=== PATIENT | female | born 1990 | race American Indian/Alaskan Native ===

== ENCOUNTER 2019-08-23 23:05 | Emergency (ER) | payer MEDICAID ==
[2019-08-23 23:39] VITALS: BP 110/49
[2019-08-24 01:19] LABS: Basophils % (Auto) 0.8 % (0.0-1.8); Eosinophils # (Auto) 0.2 K/mm3 (0.0-0.4); Eosinophils % (Auto) 3.1 % (0.0-4.3); Hematocrit 36.3 % (30.3-42.9); Hemoglobin 12.2 gm/dl (10.1-14.3); Lymphocytes % (Auto) 38.4 % (13.4-35.0); Mean Corpuscular HGB Conc 34 % (30-34); Mean Corpuscular Volume 91 fl (79-97); Monocytes # (Auto) 0.4 K/mm3 (0.0-0.8); Monocytes % (Auto) 7.6 % (0.0-7.3); Platelet Count 294 K/mm3 (140-440); Red Cell Distribution Width 14.7 % (13.2-15.2)
--- NOTE | 2019-08-24 01:28 | Ultrasound Report ---
ULTRASOUND OBSTETRIC INDICATION: Vaginal bleeding. Clinical gestational age of 12 weeks, 4 days. TECHNIQUE: Transabdominal. COMPARISON: None available. FINDINGS: GESTATIONAL SAC: Well-defined oval shape and intrauterine in location. YOLK SAC: No significant abnormality. EMBRYO/FETUS: No significant abnormality. - [place]-Rump Length = 4.7 cm = 11 weeks, 4 day(s). - Heart Rate = 163 beats per minute. ADNEXA: No significant abnormality. FREE FLUID: None. ADDITIONAL FINDINGS: None. IMPRESSION: 1. Single, living intrauterine with estimated sonographic age of 11 weeks, 4 day(s). 2. No acute sonographic abnormality of the pelvis. Signer Name: Daniel Palmer MD Signed: 08/24/2019 1:24 AM Workstation Name: [id number]
[2019-08-24 01:31] LABS: Bilirubin,Urine NEG (Negative); Blood,Urine SM (Negative); Color,Urine Yellow (Yellow); Mucus,Urine FEW /HPF; Protein,Urine <15 mg/dL mg/dL (Negative); Urobilinogen,Urine < 2.0 mg/dL (<2.0)
[2019-08-24] MEDS: cephALEXin 500 MG CAP PO ONE (02:03)
[2019-08-24] MEDS: ACETAMINOPHEN 500 MG TAB PO ONE (02:03)
--- NOTE | 2019-08-24 02:42 | Emergency Department Report ---
<ANDREABRIAN - Last Filed: 08/24/19 20:21> ED Female HPI - General Chief complaint: Vaginal Bleeding Stated complaint: 11 WKS W/BLEEDING AND CLOTS Source: patient Mode of arrival: Ambulatory Limitations: No Limitations - History of Present Illness Initial comments: Patient is a A1 28-year-old -[place] female who is approximately 11 weeks gestation who presented to the ED with acute onset persistent pelvic pain and in persistent vaginal bleeding for the last 2 days after sexual intercourse. Patient states that the pain and the bleeding got worse in the last 6 hours when she noticed large blood clots. Patient denies fever, chills, nausea, vomiting, dizziness, syncope, chest pain or shortness of breath, dysuria, urinary frequency and urgency or vaginal discharge and low back pain. MD Complaint: vaginal bleeding, pelvic pain -: Sudden, days(s) (2) Location: suprapubic Radiation: non-radiating Severity: severe Severity scale (0 -10): 8 Quality: cramping, aching Consistency: constant Improves with: none Worsens with: intercourse Are you Now?: Yes (11 weeks gestation) Associated Symptoms: denies other symptoms, vaginal bleeding, abdominal pain (suprapaubic). denies: vaginal discharge, nausea/vomiting, fever/chills, headaches, loss of appetite, dysuria, hematuria, shortness of breath, syncope, weakness - Related Data Sexually active: Yes : 2 Para: 0 A: 1 Previous Rx's Medication Instructions Recorded Last Taken Type cephALEXin [Keflex] 500 mg PO Q6HR #40 capsule 08/24/19 Unknown Rx Allergies Allergy/AdvReac Type Severity Reaction Status Date / Time No Known Allergies Allergy Unverified 08/24/19 00:26 ED Review of Systems Constitutional: denies: chills, fever Eyes: denies: eye pain, eye discharge, vision change ENT: denies: ear pain, throat pain Respiratory: denies: cough, shortness of breath, wheezing Cardiovascular: denies: chest pain, palpitations Endocrine: no symptoms reported Gastrointestinal: abdominal pain (suprapubic). denies: nausea, vomiting, diarrhea Genitourinary: abnormal menses (vaginal bleeding). denies: urgency, dysuria, discharge Musculoskeletal: denies: back pain, joint swelling, arthralgia Skin: denies: rash, lesions Neurological: denies: headache, weakness, paresthesias Psychiatric: denies: anxiety, depression Hematological/Lymphatic: denies: easy bleeding, easy bruising ED Past Medical Hx - Past Medical History Previous Medical History?: No - Surgical History Past Surgical History?: No - Social History Smoking Status: Never Smoker Substance Use Type: None - Medications Home Medications: Home Medications Medication Instructions Recorded Confirmed Last Taken Type cephALEXin [Keflex] 500 mg PO Q6HR #40 capsule 08/24/19 Unknown Rx ED Physical Exam - General Limitations: No Limitations General appearance: alert, in no apparent distress - Head Head exam: Present: atraumatic, normocephalic, normal inspection - Eye Eye exam: Present: normal appearance, PERRL, EOMI Pupils: Present: normal accommodation - ENT ENT exam: Present: normal exam, normal orophraynx, mucous membranes moist, TM's normal bilaterally, normal external ear exam - Neck Neck exam: Present: normal inspection, full ROM - Respiratory Respiratory exam: Present: normal lung sounds bilaterally. Absent: respiratory distress, wheezes, rales, stridor, chest wall tenderness, accessory muscle use, decreased breath sounds, prolonged expiratory - Cardiovascular Cardiovascular Exam: Present: regular rate, normal rhythm, normal heart sounds. Absent: systolic murmur, diastolic murmur, rubs, gallop - GI/Abdominal GI/Abdominal exam: Present: soft, tenderness (suprapubic ), normal bowel sounds. Absent: guarding, rebound - Bi-manual exam: Present: other (patient declined pelvic exam) - Extremities Exam Extremities exam: Present: normal inspection, full ROM, normal capillary refill - Back Exam Back exam: Present: normal inspection, full ROM. Absent: tenderness, CVA tenderness (R), CVA tenderness (L), muscle spasm, vertebral tenderness - Neurological Exam Neurological exam: Present: alert, oriented X3, CN II-XII intact, normal gait, reflexes normal - Psychiatric Psychiatric exam: Present: normal affect, normal mood - Skin Skin exam: Present: warm, dry, intact, normal color. Absent: rash ED Medical Decision Making - Lab Data Result diagrams: 08/24/19 00:44 - Radiology Data Radiology results: report reviewed, image reviewed Findings [facility] [address] [place] [address] Ultrasound Report Signed Patient: MICHAEL SHAH MR#: [id number] : 1990 Acct:[id number] Age/Sex: 28 / F ADM Date: 08/23/19 Loc: ED Attending Dr: Ordering Physician: CELINA FRANCO MD Date of Service: 08/24/19 Procedure(s): US OB <= 14 weeks fetus Accession Number(s): [id number] cc: CELINA FRANCO MD ULTRASOUND OBSTETRIC INDICATION: Vaginal bleeding. Clinical gestational age of 12 weeks, 4 days. TECHNIQUE: Transabdominal. COMPARISON: None available. FINDINGS: GESTATIONAL SAC: Well-defined oval shape and intrauterine in location. YOLK SAC: No significant abnormality. EMBRYO/FETUS: No significant abnormality. - [place]-Rump Length = 4.7 cm = 11 weeks, 4 day(s). - Heart Rate = 163 beats per minute. ADNEXA: No significant abnormality. FREE FLUID: None. ADDITIONAL FINDINGS: None. IMPRESSION: 1. Single, living intrauterine with estimated sonographic age of 11 weeks, 4 day(s). 2. No acute sonographic abnormality of the pelvis. Signer Name: Daniel Palmer MD Signed: 08/24/2019 1:24 AM Workstation Name: [id number] Transcribed By: MN Dictated By: Daniel Palmer MD Electronically Authenticated By: Daniel Palmer MD Signed Date/Time: 08/24/19123 DD/ 2 TD/TT: - Medical Decision Making This is a A1 28-year-old -[place] female who is approximately 11 weeks gestation who presented to the ED with acute onset persistent pelvic pain and in persistent vaginal bleeding for the last 2 days after sexual intercourse. In the ED, patient is alert and oriented x3 and is not in any distress. Pat ient was treated for pain in the ED and lab test results [place] [id number] with urinalysis showing acute urinary tract infection. The rest of the lab test results were nonactionable. Transvaginal ultrasound showed a single, living intrauterine with estimated sonographic age of 11 weeks, 4 day(s), and heart rate of 163 bpm. There are no other acute sonographic abnormality of the pelvis. On reevaluation, patient's pain is well controlled with medications. Patient was discharged home oral antibiotic prescriptions for UTI and advised to maintain a complete pelvic rest, devoid of any strenuous physical activity or sexual activity until she follows up with up with [facility] physician. Patient was advised to follow-up with our [facility] physician in 5 to 7 days for reevaluation or return to the ED immediately if symptoms get worse. - Differential Diagnosis Threatened miscarriage; Subchorionic bleed; Ovarian cyst; fibroids; UTI ED Disposition Clinical Impression: Threatened miscarriage, Acute urinary tract infection Abdominal pain in Qualifiers: Trimester: first trimester Qualified Code(s): O26.891 - Other specified related conditions, first trimester Disposition: DC-01 TO HOME OR SELFCARE Is pt being admited?: No Does the pt Need Aspirin: No Condition: Stable Instructions: Threatened Miscarriage (ED), Urinary Tract Infection in Women (ED), Abdominal Pain in (ED) Additional Instructions: Maintain a complete pelvic rest with no strenuous physical or sexual activity, heavy lifting and take Tylenol as needed for pain. Follow-up with your [facility] physician in 5 to 7 days for reevaluation or return to the ED immediately if symptoms get worse. Prescriptions: cephALEXin [Keflex] 500 mg PO Q6HR #40 capsule Referrals: TEQUILA BISHOP MD [Staff Physician] - 3-5 Days Forms: Work/School Release Form(ED) Time of Disposition: 02:45 Print Language: SRI LANKAN <CELINA FRANCO - Last Filed: 08/25/19 22:43> ED Review of Systems ROS: Stated complaint: 11 WKS W/BLEEDING AND CLOTS Other details as noted in HPI ED Course Vital Signs 08/23/19 08/24/19 23:37 03:04 Temperature 98.6 F Pulse Rate 72 77 Respiratory 18 17 Rate Blood Pressure 110/49 O2 Sat by Pulse 100 100 Oximetry ED Medical Decision Making - Lab Data Result diagrams: 08/24/19 00:44 Critical care attestation.: If time is entered above; I have spent that time in minutes in the direct care of this critically ill patient, excluding procedure time. ED Disposition Is pt being admited?: No Does the pt Need Aspirin: No
== END 2019-08-24 03:04 | disposition home or self-care (01) ==
LOC: ED 23:05
DX: O20.0 Threatened abortion (principal); O23.41 Unspecified infection of urinary tract in pregnancy, first trimester; O26.891 Other specified pregnancy related conditions, first trimester; R10.9 Unspecified abdominal pain; Z3A.11 11 weeks gestation of pregnancy; Z79.899 Other long term (current) drug therapy
CPT/HCPCS: 36415; 76801; 81001; 84702; 85025; 86900; 86901; 87086